=== PATIENT | female | born 2000 | race Two or more races ===

== ENCOUNTER 2024-07-16 23:23 | Emergency (ER) | payer BC, SELFPAY ==
[2024-07-16 23:26] VITALS: BMI 33.3
[2024-07-17 00:06] VITALS: BP 141/91; PULSE 73; RESP 18; TEMP 36.8; O2SAT 98
--- NOTE | 2024-07-17 05:49 | PD.EDCHEST ---
ED Chest Pain RME/HPI General Chief Complaint: Chest Pain Stated Complaint: CHEST PAIN, BURNING PAIN IN SHOULDER Time Seen by Provider: 07/17/24 00:29 Arrival date/time: 07/16/24 23:23 24F with no significant PMH presents to ED with 2 days of L upper back and chest burning pain that is worse with movement. Patient denies URI symptoms and SOB. Limitations: no limitations Related Data Allergies Allergy/AdvReac Type Severity Reaction Status Date / Time No Known Allergies Allergy Verified 07/16/24 23:29 Review of Systems Review of Systems Systems Reviewed: All systems reviewed, normal except as documented Constitutional Constitutional: Reports system reviewed and no additional complaints, except as documented, Denies fever(s) and Denies headache(s) ENT Ears, Nose, Mouth, and Throat: Denies disequilibrium and Denies headache(s) Cardiovascular Cardiovascular: Reports system reviewed and no additional complaints, except as documented, Reports as per HPI, Reports chest pain and Denies dyspnea Respiratory Respiratory: Reports system reviewed and no additional complaints, except as documented, Denies cough and Denies dyspnea Gastrointestinal Gastrointestinal: Reports system reviewed and no additional complaints, except as documented, Denies abdominal pain, Denies nausea and Denies vomiting Neurologic Neurologic: Reports system reviewed and no additional complaints, except as documented, Denies confusion, Denies disequilibrium and Denies headache(s) Psychiatric Psychiatric: Denies confusion Past Medical History Social History SMOKING STATUS: Never smoker ED Exam General Limitations: Present no limitations General appearance: Present alert and in no apparent distress Head Head exam: Present atraumatic Eye Eye exam: Present normal appearance, PERRL and EOMI ENT ENT exam: Present normal exam, normal oropharynx and mucous membranes moist Neck Neck exam: Present normal inspection, full ROM and trachea midline Chest Chest inspection: Present normal inspection and symmetric chest wall rise Respiratory Respiratory exam: Present normal lung sounds bilaterally Cardiovascular Cardiovascular exam: Present regular rate, normal rhythm and normal heart sounds Abdominal Exam Abdominal exam: Present soft and normal bowel sounds Extremities Exam Extremities exam: Present normal inspection and full ROM Back Exam Back exam: Present full ROM and tenderness (L upper back point) Neurological Exam Neurological exam: Present alert, oriented X3 and CN II-XII intact Psychiatric Psychiatric exam: Present normal affect and normal mood Skin Skin exam: Present warm, dry, intact and normal color Course Quality Measures none Orders Category Date Time Status EKG (ED ONLY) *Do not use* NOW Care 04/03/25 23:38 Completed EKG (ED Only) Stat Exams 07/16/24 23:38 Ordered Vital Signs Vital signs: Vital Signs Temperature 98.2 F 07/17/24 00:06 Pulse Rate 73 07/17/24 00:06 Respiratory Rate 18 07/17/24 00:06 Blood Pressure 141/91 H 07/17/24 00:06 Pulse Oximetry (%) 98 07/17/24 00:06 Oxygen Delivery Method Room Air 07/17/24 00:06 O2 at 98% on RA and WNLs Chest Pain MDM Narrative MDM Narrative:: 24F with no significant PMH presents to ED with 2 days of L upper back and chest burning pain that is worse with movement. Patient denies URI symptoms and SOB. Physical exam reveals clear lungs and RRR. Normal WOB. Point tenderness on L upper back. Patient is afebrile, calm, and alert. EKG is NSR. Likely MSK-related such as muscle strain of costochondritis. Patient data External records reviewed:: [facility] previous records Clinical information provided by:: patient Social determinants that could affect healthcare access:: none Patient has the following chronic illnesses:: none How is presenting disease/condition affected by chronic disease/condition?: no chronic disease Evaluation data The following diagnostics were reviewed and interpreted by me:: EKG tracing(s) Lab and/or radiology exams considered but not ordered:: ordered Interpretation Summary: above Medications / Prescriptions Medications or Prescriptions considered but not ordered:: not ordered Medication administrations:: n/a Consultations Consultation(s) initiated? (list below): No Diagnosis Chest Pain Differential Diagnosis: fracture of rib, pneumothorax, stable angina, unstable angina pectoris, atypical chest pain, st elevation myocardial infarction, costochondritis, chest pain, biliary colic and other (chest wall muscle strain) Most likely diagnosis given after review of the tests above:: chest wall muscle strain Admission Indicated Admission indicated?: not indicated Admission Request Was there a request for admission?: No Disposition Plan Disposition Plan: Discharge Discharge Attestation Discharge Attestation: The patient and all family members were given an opportunity to ask questions and understood the discharge instructions. Discharge instructions specifically effects, indications for sooner follow up or return to the emergency department, and the expected course of current diagnosis. Patient condition: Stable Discharge Plan Plan Patient Disposition: HOME (Self Care) Disposition Comment: Stable Problem List Clinical Impression: Chest wall muscle strain Patient/Caregiver Discharge Instructions Education Materials: ED Chest Pain, Uncertain Cause Additional Instructions: Please follow-up with PCP within 24-48 hours and return immediately if symptoms worsen. Print Language: Prydeinig Stand Alone Forms: Patient Portal Info Letter PA/EMOTIONAL SUPPORT TEACHER Supervising Physician PA/EMOTIONAL SUPPORT TEACHER Supervising Physician: Dr. Shabazz
== END 2024-07-17 00:32 | disposition home or self-care (01) ==
LOC: SERX 07-17 00:35
PROVIDERS: Emergency Provider Emergency Medicine; PCP Nurse Practitioner Family
DX: S29.011A Strain of muscle and tendon of front wall of thorax, initial encounter (principal); X58.XXXA Exposure to other specified factors, initial encounter
CPT/HCPCS: 93005; 99283

== ENCOUNTER → 2024-12-15 | Outpatient (CLI) | payer BC, SELFPAY ==
--- NOTE | 2024-12-15 10:15 | XR_ITS ---
Examination: Abdomen sonogram, complete Date and time of exam: December 15, 2024 1004 hours INDICATIONS: Right upper abdominal pain beginning 3 weeks ago. Technique: Multiple real-time grayscale transabdominal sonographic images of the abdomen have been obtained. Findings: Normal gallbladder. Normal common bile duct 0.5 cm Pancreatic head 1.7 cm Aorta not enlarged. Liver 14.5 cm fatty infiltration no focal liver lesions Normal hepatopedal portal venous flow Patent IVC Right kidney 9.7 cm cortex 1.8 cm Left kidney 9.3 cm cortex 1.9 cm Spleen 10.0 cm. IMPRESSION: Normal gallbladder Fatty infiltration throughout the liver
== END | disposition home or self-care (01) ==
LOC: CDIM 09:53
PROVIDERS: PCP Physician Assistant; Referring Provider Physician Assistant; Visit Provider Physician Assistant
DX: K76.0 Fatty (change of) liver, not elsewhere classified (principal)
CPT/HCPCS: 76700